=== PATIENT | female | born 1950 | race American Indian/Alaskan Native ===

== ENCOUNTER 2016-10-14 06:50 | Emergency (ER) | payer MEDICARE ==
[2016-10-14 13:32] VITALS: BP 141/91
--- NOTE | 2016-10-14 22:43 | Emergency Department Report ---
Entered by VAUGHN GAGNON, acting as scribe for TABITHA CAM PA. ED Lower Extremity HPI - General Chief Complaint: Extremity Injury, Lower Stated Complaint: LEG CRAMP Time Seen by Provider: 10/14/16 11:23 Source: patient, EMS Mode of arrival: Wheelchair Limitations: Physical Limitation - History of Present Illness Initial Comments: 66 y/o female with a PMHX of CVA, HTN, and MS presents to the ED c/o cramping right leg and calf pain that began this morning. Patient states she was awaken by the pain this morning. Patient states she did not have any symptoms prior to onset of pain. Reports walking a lot on hardwood floors in her home yesterday. Denies chest pain, SOB, dizziness, numbness, and tingling. Patient states the pain is alleviated with walking and aggravated with nothing. Denies Hx of similar symptoms. NKDA. DELUNA Complaint: other (right leg and calf pain) -: This morning Type of Injury: other (no injury) Place: home Severity: mild Improves With: other (walking) Worsens With: nothing Associated Symptoms: denies: swelling, numbness, tingling, unable to bear weight , able to partially bear weight, ambulatory - Related Data Home Medications Medication Instructions Recorded Confirmed Last Taken Carvedilol 12.5 mg PO BID 03/25/15 04/03/15 04/03/15 Coumadin 5 mg PO DAILY 03/25/15 04/03/15 03/30/15 Digoxin 1.25 mg PO DAILY 03/25/15 04/03/15 04/03/15 Lisinopril 2.5 mg PO DAILY 03/25/15 04/03/15 04/03/15 Previous Rx's Medication Instructions Recorded Last Taken Type Cyclobenzaprine [Flexeril] 10 mg PO QHS PRN #20 tablet 10/14/16 Unknown Rx Naproxen [Naprosyn] 500 mg PO BID #30 tablet 10/14/16 Unknown Rx Allergies Allergy/AdvReac Type Severity Reaction Status Date / Time No Known Allergies Allergy Verified 03/25/15 14:24 ED Review of Systems Comment: All other systems reviewed and negative Constitutional: no symptoms reported. denies: chills, fever, weakness Respiratory: no symptoms reported. denies: cough, orthopnea, shortness of breath, SOB with exertion, SOB at rest, stridor, wheezing Cardiovascular: denies: chest pain, palpitations Endocrine: no symptoms reported Gastrointestinal: denies: nausea, vomiting Musculoskeletal: arthralgia (right leg and calf pain). denies: back pain, joint swelling Skin: denies: rash, lesions Neurological: denies: headache, weakness, numbness, paresthesias ED Past Medical Hx - Past Medical History Hx Hypertension: Yes (EF 20%; CHF; takes dig, lisinopril, and coreg) Hx CVA: Yes (residual left side weakness) Hx Congestive Heart Failure: Yes Hx Asthma: No Hx HIV: No - Surgical History Past Surgical History?: No Additional Surgical History: Hysterectomy, Removed blood clot from brain - Social History Smoking Status: Former Smoker Substance Use Type: Prescribed - Medications Home Medications: Home Medications Medication Instructions Recorded Confirmed Last Taken Type Carvedilol 12.5 mg PO BID 03/25/15 04/03/15 04/03/15 History Coumadin 5 mg PO DAILY 03/25/15 04/03/15 03/30/15 History Digoxin 1.25 mg PO DAILY 03/25/15 04/03/15 04/03/15 History Lisinopril 2.5 mg PO DAILY 03/25/15 04/03/15 04/03/15 History Cyclobenzaprine [Flexeril] 10 mg PO QHS PRN #20 tablet 10/14/16 Unknown Rx Naproxen [Naprosyn] 500 mg PO BID #30 tablet 10/14/16 Unknown Rx ED Physical Exam - General Limitations: Physical Limitation General appearance: alert, in no apparent distress - Head Head exam: Present: atraumatic, normocephalic - Eye Eye exam: Present: normal appearance, PERRL, EOMI Pupils: Present: normal accommodation - ENT ENT exam: Present: normal exam, mucous membranes moist - Neck Neck exam: Present: normal inspection, full ROM. Absent: tenderness, lymphadenopathy - Respiratory Respiratory exam: Present: normal lung sounds bilaterally. Absent: respiratory distress, wheezes, rales, rhonchi, stridor - Cardiovascular Cardiovascular Exam: Present: regular rate, normal rhythm, normal heart sounds. Absent: systolic murmur, diastolic murmur, rubs, gallop - GI/Abdominal GI/Abdominal exam: Present: soft, normal bowel sounds. Absent: distended, tenderness, guarding, rebound, rigid - Extremities Exam Extremities exam: Present: full ROM, tenderness (right calf tenderness), normal capillary refill. Absent: pedal edema, joint swelling, calf tenderness - Expanded Lower Extremity Exam Right Hip exam: Present: normal inspection, full ROM Upper Leg exam: Present: normal inspection, full ROM Knee exam: Present: normal inspection, full ROM, full knee extension Lower Leg exam: Present: full ROM, tenderness (right calf tenderness). Absent: swelling, abrasion, laceration, ecchymosis, deformity, crepidus, dislocation, erythema, Emily's sign Ankle exam: Present: normal inspection, full ROM Foot/Toe exam: Present: normal inspection, full ROM Neuro vascular tendon exam: Present: no vascular compromise. Absent: pulse deficit, abnormal cap refill, motor deficit, sensory deficit, tendon deficit, extremity cold to touch, pallor, abnormal 2-point discrimination Gait: Positive: observed and normal - Back Exam Back exam: Present: normal inspection - Neurological Exam Neurological exam: Present: alert, oriented X3, other (generalized left sided weakness due to a previous CVA) - Psychiatric Psychiatric exam: Present: normal affect, normal mood - Skin Skin exam: Present: warm, dry, intact. Absent: rash ED Course Vital Signs 10/14/16 10/14/16 07:15 13:31 Temperature 98 F Pulse Rate 66 64 Respiratory 18 18 Rate Blood Pressure 147/91 Blood Pressure 141/91 [Left] O2 Sat by Pulse 97 98 Oximetry ED Lower Extremity MDM - Radiology Data Radiology results: report reviewed 10/14/16 12:49 - Radiology Dept. Note by KATERIN HOLLINGSWORTH [facility] Num: [id number] : 1950 Patient Age: 66 VASCULAR LAB.PRELIMINARY REPORT.RLE VENOUS DUPLEX DONE.NO EVIDENCE OF DVT/SVT IN VESSELS VISUALIZED. - Medical Decision Making 66-year-old female presents with right leg myalgia ED course: Doppler studies of bilateral left extremity abstained. Negative for DVT see above. Patient is not ill-appearing. Right calf tenderness with no swelling. Negative Emily's sign. Discussed the follow-up with PCP as referred. Discuss her symptoms and she is encouraged to return to ED for any worsening symptoms. Patient states understanding and will follow instructions. Vital signs stable. Patient is in no acute distress. - Differential Diagnosis 1. muscle strain 2. DVT 3. Myalgia ED Disposition Disposition: - TO HOME OR SELFCARE Is pt being admited?: No Does the pt Need Aspirin: No Condition: Stable Instructions: Muscle Strain (ED) Additional Instructions: Follow-up primary care physician. If he developed new signs such as shortness of breath or worsening leg pain and return to ED Continue to take her medications as prescribed to by her primary care. Prescriptions: Cyclobenzaprine [Flexeril] 10 mg PO QHS PRN #20 tablet PRN Reason: Muscle Spasm Naproxen [Naprosyn] 500 mg PO BID #30 tablet Referrals: PRIMARY CARE,MD [Primary Care Provider] - 3-5 Days [facility] [Outside] - 3-5 Days [facility] [Outside] - 3-5 Days Forms: Work/School Release Form(ED) Time of Disposition: 13:09 This documentation as recorded by the KALIN marcelino JASMINE,accurately reflects the service I personally performed and the decisions made by ,TABITHA CAM PA.
--- NOTE | 2016-10-15 14:49 | Vascular Lab Report ---
Right Lower Extremity Venous Duplex Study: Reason for Exam: Pain of the right lower extremity. Comments on the Right: All veins visualized are freely compressible without evidence of internal echogenicity. Flow is spontaneous and phasic throughout. No evidence of acute or chronic thrombus is seen in any of the vessels visualized. Comments on the Left: A limited duplex study was done of the proximal veins of the left lower extremity. All veins visualized are freely compressible without evidence of internal echogenicity. Flow is spontaneous and phasic throughout. No evidence of acute or chronic thrombus is seen in any of the vessels visualized. Impression: No evidence of acute or chronic deep venous thrombosis in the right lower extremity.
== END 2016-10-14 13:30 | disposition home or self-care (01) ==
LOC: ED 06:50
DX: S86.811A Strain of other muscle(s) and tendon(s) at lower leg level, right leg, initial encounter (principal); I10 Essential (primary) hypertension; I50.9 Heart failure, unspecified; X58.XXXA Exposure to other specified factors, initial encounter; Y93.01 Activity, walking, marching and hiking; Y99.8 Other external cause status; Y92.89 Other specified places as the place of occurrence of the external cause; Z86.73 Personal history of transient ischemic attack (TIA), and cerebral infarction without residual deficits; Z87.891 Personal history of nicotine dependence

== ENCOUNTER 2017-04-07 09:01 | Inpatient (IN) | payer MEDICARE ==
[2017-04-07 10:11] LABS: Basophils % (Auto) 0.7 % (0.0-1.8); Eosinophils % (Auto) 0.8 % (0.0-4.3); Hematocrit 40.6 % (30.3-42.9); Hemoglobin 13.5 gm/dl (10.1-14.3); Mean Corpuscular HGB Conc 33 % (30-34); Mean Corpuscular Hemoglobin 33 pg (28-32); Mean Corpuscular Volume 98 fl (79-97); Platelet Count 167 K/mm3 (140-440); Red Blood Count 4.13 M/mm3 (3.65-5.03); Red Cell Distribution Width 14.9 % (13.2-15.2); White Blood Count 8.8 K/mm3 (4.5-11.0)
[2017-04-07 10:25] LABS: Anion Gap 20 mmol/L; BUN/Creatinine Ratio 21; Blood Urea Nitrogen 15 mg/dL (7-17); Calcium 8.9 mg/dL (8.4-10.2); Carbon Dioxide 20 mmol/L (22-30); Chloride 109.8 mmol/L (98-107); Glucose 118 mg/dL (65-100); Potassium 3.6 mmol/L (3.6-5.0); Sodium 146 mmol/L (137-145)
[2017-04-07 10:36] LABS: INR 1.39 (0.87-1.13)
[2017-04-07 10:37] LABS: Partial Thromboplastin Time 28.7 Sec. (24.2-36.6)
--- NOTE | 2017-04-07 15:16 | XRay Report ---
PORTABLE CHEST INDICATION: Shortness of breath. COMPARISON: 11/20/2012 FINDINGS: Portable, frontal chest radiograph again demonstrates mild to moderate cardiomegaly. Clear lungs. Right hemidiaphragm slightly elevated. No pleural effusions or CHF. Mid to lower thoracic spine degenerative spurring. CONCLUSION: No acute chest process with cardiomegaly again noted, as above. Thank you for the opportunity to participate in this patient's care.
[2017-04-07] MEDS ORDERED: DUONEB *Not for PRN Use IH ONE (21:34)
[2017-04-07] MEDS ORDERED: LASIX IV ONE (21:34)
--- NOTE | 2017-04-07 21:39 | Emergency Department Report ---
ED Shortness of Breath HPI - General Chief Complaint: Dyspnea/Respdistress Stated Complaint: MARY Time Seen by Provider: 04/07/17 20:27 Source: patient Mode of arrival: Wheelchair Limitations: No Limitations - History of Present Illness Initial Comments: 67 yo female who comes in today due to shortness of breath. She states that it started about one day ago. She has a hx of atrial fibrillation and congestive heart failure, for which she takes medications. She also admits to a hx of cva with a left sided deficit. MD Complaint: shortness of breath -: days(s) (one ) Severity: moderate Improves With: oxygen, rest, bronchodilators, medication (lasix) Worsens With: exertion Known History Of: congestive heart failure, other (atrial fibrillation ) Associated Symptoms: chest pain Treatments Prior to Arrival: none - Related Data Home Oxygen Therapy: No Home Medications Medication Instructions Recorded Confirmed Last Taken Carvedilol 12.5 mg PO BID 03/25/15 04/03/15 04/03/15 Coumadin 5 mg PO DAILY 03/25/15 04/03/15 03/30/15 Digoxin 1.25 mg PO DAILY 03/25/15 04/03/15 04/03/15 Lisinopril 2.5 mg PO DAILY 03/25/15 04/03/15 04/03/15 Previous Rx's Medication Instructions Recorded Last Taken Type Cyclobenzaprine [Flexeril] 10 mg PO QHS PRN #20 tablet 10/14/16 Unknown Rx Naproxen [Naprosyn] 500 mg PO BID #30 tablet 10/14/16 Unknown Rx Allergies Allergy/AdvReac Type Severity Reaction Status Date / Time No Known Allergies Allergy Verified 04/07/17 09:36 ED Review of Systems ROS: Stated complaint: MARY Other details as noted in HPI Constitutional: denies: chills, fever Eyes: denies: eye pain, eye discharge, vision change Respiratory: see HPI, shortness of breath Cardiovascular: chest pain Endocrine: no symptoms reported Gastrointestinal: denies: abdominal pain, nausea, diarrhea Genitourinary: denies: urgency, dysuria, discharge Musculoskeletal: denies: back pain, joint swelling, arthralgia Skin: denies: rash, lesions Neurological: denies: headache, weakness, paresthesias Psychiatric: denies: anxiety, depression Hematological/Lymphatic: other (edema-bilateral lower extremities) ED Past Medical Hx - Past Medical History Previous Medical History?: Yes Hx Hypertension: Yes (EF 20%; CHF; takes dig, lisinopril, and coreg) Hx CVA: Yes (residual left side weakness) Hx Congestive Heart Failure: Yes Hx Asthma: No Hx HIV: No - Surgical History Additional Surgical History: Hysterectomy, Removed blood clot from brain - Social History Smoking Status: Never Smoker Substance Use Type: None - Medications Home Medications: Home Medications Medication Instructions Recorded Confirmed Last Taken Type Carvedilol 12.5 mg PO BID 03/25/15 04/03/15 04/03/15 History Coumadin 5 mg PO DAILY 03/25/15 04/03/15 03/30/15 History Digoxin 1.25 mg PO DAILY 03/25/15 04/03/15 04/03/15 History Lisinopril 2.5 mg PO DAILY 03/25/15 04/03/15 04/03/15 History Cyclobenzaprine [Flexeril] 10 mg PO QHS PRN #20 tablet 10/14/16 Unknown Rx Naproxen [Naprosyn] 500 mg PO BID #30 tablet 10/14/16 Unknown Rx ED Physical Exam - General Limitations: No Limitations General appearance: alert, in no apparent distress - Head Head exam: Present: atraumatic, normocephalic - Eye Eye exam: Present: normal appearance - ENT ENT exam: Present: mucous membranes moist - Neck Neck exam: Present: normal inspection - Respiratory Respiratory exam: Present: wheezes (minimal diffusely), other (crackles- bilateral lower lung corea) - Cardiovascular Cardiovascular Exam: Present: regular rate, normal rhythm. Absent: systolic murmur, diastolic murmur, rubs, gallop - GI/Abdominal GI/Abdominal exam: Present: soft, normal bowel sounds - Extremities Exam Extremities exam: Present: pedal edema (bilaterally ) - Back Exam Back exam: Present: normal inspection - Neurological Exam Neurological exam: Present: alert, oriented X3 - Psychiatric Psychiatric exam: Present: normal affect, normal mood - Skin Skin exam: Present: warm, dry, intact, normal color. Absent: rash ED Course Vital Signs 04/07/17 04/07/17 04/07/17 09:37 16:40 18:42 Temperature 97.5 F L 97.8 F Pulse Rate 75 79 81 Pulse Rate [ Anterior Bilateral Throughout] Respiratory 22 22 21 Rate Respiratory Rate [Anterior Bilateral Throughout] Blood Pressure 140/86 179/100 Blood Pressure [Right] O2 Sat by Pulse 98 98 95 Oximetry 04/07/17 04/07/17 04/07/17 18:50 18:51 19:00 Temperature 98.1 F Pulse Rate 102 H 83 81 Pulse Rate [ Anterior Bilateral Throughout] Respiratory 34 H 18 20 Rate Respiratory Rate [Anterior Bilateral Throughout] Blood Pressure 173/90 173/90 Blood Pressure 173/90 [Right] O2 Sat by Pulse 96 97 94 Oximetry 04/07/17 04/07/17 04/07/17 19:10 19:20 19:30 Temperature Pulse Rate 72 85 93 H Pulse Rate [ Anterior Bilateral Throughout] Respiratory 20 19 19 Rate Respiratory Rate [Anterior Bilateral Throughout] Blood Pressure 171/89 171/89 171/89 Blood Pressure [Right] O2 Sat by Pulse 97 98 95 Oximetry 04/07/17 04/07/17 04/07/17 19:40 19:50 20:00 Temperature Pulse Rate 105 H 86 77 Pulse Rate [ Anterior Bilateral Throughout] Respiratory 17 33 H 17 Rate Respiratory Rate [Anterior Bilateral Throughout] Blood Pressure 184/93 184/93 177/86 Blood Pressure [Right] O2 Sat by Pulse 96 92 99 Oximetry 04/07/17 04/07/17 04/07/17 20:10 20:20 20:30 Temperature Pulse Rate 100 H 91 H 89 Pulse Rate [ Anterior Bilateral Throughout] Respiratory 24 32 H 32 H Rate Respiratory Rate [Anterior Bilateral Throughout] Blood Pressure 184/73 178/88 178/88 Blood Pressure [Right] O2 Sat by Pulse 98 97 99 Oximetry 04/07/17 04/07/17 04/07/17 20:40 20:50 21:00 Temperature Pulse Rate 79 105 H 127 H Pulse Rate [ Anterior Bilateral Throughout] Respiratory 24 28 H 24 Rate Respiratory Rate [Anterior Bilateral Throughout] Blood Pressure 156/81 175/104 179/97 Blood Pressure [Right] O2 Sat by Pulse 98 97 93 Oximetry 04/07/17 04/07/17 04/07/17 21:11 21:20 21:30 Temperature Pulse Rate 93 H 100 H 84 Pulse Rate [ Anterior Bilateral Throughout] Respiratory 12 20 14 Rate Respiratory Rate [Anterior Bilateral Throughout] Blood Pressure 175/104 180/99 170/98 Blood Pressure [Right] O2 Sat by Pulse 99 99 97 Oximetry 04/07/17 04/07/17 04/07/17 21:40 21:50 21:53 Temperature 97.7 F Pulse Rate 102 H 102 H 94 H Pulse Rate [ Anterior Bilateral Throughout] Respiratory 22 24 28 H Rate Respiratory Rate [Anterior Bilateral Throughout] Blood Pressure 170/98 122/82 Blood Pressure 177/88 [Right] O2 Sat by Pulse 99 98 96 Oximetry 04/07/17 04/07/17 04/07/17 21:56 22:00 22:06 Temperature Pulse Rate 102 H 108 H 123 H Pulse Rate [ Anterior Bilateral Throughout] Respiratory 19 16 28 H Rate Respiratory Rate [Anterior Bilateral Throughout] Blood Pressure 122/82 122/82 122/82 Blood Pressure [Right] O2 Sat by Pulse 98 98 93 Oximetry 04/07/17 04/07/17 04/07/17 22:10 22:12 22:16 Temperature Pulse Rate 112 H 107 H Pulse Rate [ 91 H Anterior Bilateral Throughout] Respiratory 14 26 H Rate Respiratory 12 Rate [Anterior Bilateral Throughout] Blood Pressure 122/82 137/116 Blood Pressure [Right] O2 Sat by Pulse 93 98 Oximetry 04/07/17 04/07/17 04/07/17 22:20 22:21 22:26 Temperature Pulse Rate 106 H 129 H Pulse Rate [ 94 H Anterior Bilateral Throughout] Respiratory 30 H 24 Rate Respiratory 14 Rate [Anterior Bilateral Throughout] Blood Pressure 137/116 133/83 Blood Pressure [Right] O2 Sat by Pulse 98 98 Oximetry 04/07/17 04/07/17 04/07/17 22:30 22:36 22:40 Temperature Pulse Rate 108 H 97 H 178 H Pulse Rate [ Anterior Bilateral Throughout] Respiratory 16 28 H 34 H Rate Respiratory Rate [Anterior Bilateral Throughout] Blood Pressure 133/83 161/103 161/103 Blood Pressure [Right] O2 Sat by Pulse 98 98 98 Oximetry 04/07/17 04/08/17 22:46 00:15 Temperature Pulse Rate 175 H 174 H Pulse Rate [ Anterior Bilateral Throughout] Respiratory 26 H Rate Respiratory Rate [Anterior Bilateral Throughout] Blood Pressure 161/103 170/106 Blood Pressure [Right] O2 Sat by Pulse 93 Oximetry - Reevaluation(s) Reevaluation #1: 04/08/17 00:34 Shortness of breath improved. Atrial fibrillation resolved with cardizem. Plan to admit to the hospital care of the hospitalist. ED Medical Decision Making - Lab Data Result diagrams: 04/07/17 09:54 04/07/17 09:54 Critical care attestation.: If time is entered above; I have spent that time in minutes in the direct care of this critically ill patient, excluding procedure time. ED Disposition Clinical Impression: Atrial fibrillation Disposition: OP ADMIT IP TO THIS HOSP Is pt being admited?: Yes Does the pt Need Aspirin: No Condition: Stable Referrals: PRIMARY CARE, [Primary Care Provider] - 3-5 Days Time of Disposition: 00:40
[2017-04-07] MEDS ORDERED: CARDIZEM IV ONE (22:54)
[2017-04-07] MEDS ORDERED: NACL 0.9% 1000 ML 1,000 ML IV ONE ×2 (22:54→22:59)
[2017-04-08] MEDS ORDERED: COREG PO SCH ×2 (01:00→10:00)
[2017-04-08] MEDS ORDERED: MILK OF MAGNESIA PO PRN (01:24)
[2017-04-08] MEDS ORDERED: MORPHINE IV PRN (01:24)
[2017-04-08] MEDS ORDERED: TYLENOL PO PRN (01:24)
[2017-04-08] MEDS ORDERED: DULCOLAX PR PRN (01:24)
[2017-04-08] MEDS ORDERED: ZOFRAN IV PRN (01:24)
--- NOTE | 2017-04-08 01:24 | History and Physical Report ---
History of Present Illness Date of examination: 04/08/17 Date of admission: 04/08/17 Chief complaint: Shortness of breath History of present illness: Patient is 67-year-old with history of congestive heart failure atrial fibrillation on Coumadin. She presented with shortness of breath and leg swelling for one week. She states she probably ate the wrong food over past . Shortness of breath occurs at rest and is worse on exertion, worse on lying flat. She also has a cough. patient denies any chest pain, nausea and vomiting. CXR in ED showed pulmonary edema indicating acute on chronic CHF. Will admit for further management. Past History Past Medical History: atrial fib, heart failure, stroke, other (glucoma) Past Surgical History: hysterectomy, Other (Brain surgery for stroke) Social history: single, full code. denies: smoking, alcohol abuse Family history: CAD, hypertension Medications and Allergies Allergies Allergy/AdvReac Type Severity Reaction Status Date / Time No Known Allergies Allergy Verified 04/07/17 09:36 Home Medications Medication Instructions Recorded Confirmed Last Taken Type Carvedilol [Coreg] 12.5 mg PO DAILY 03/25/15 04/08/17 1 Day Ago History ~04/07/17 Digoxin [Lanoxin] 0.125 mg PO DAILY 03/25/15 04/08/17 1 Day Ago History ~04/07/17 Lisinopril [Zestril TAB] 2.5 mg PO QDAY 03/25/15 04/08/17 1 Day Ago History ~04/07/17 Warfarin Sodium [Coumadin] 5 mg PO DAILY 03/25/15 04/08/17 1 Day Ago History ~04/07/17 Cyclobenzaprine [Flexeril] 10 mg PO QHS PRN #20 tablet 10/14/16 04/08/17 1 Week Ago Rx ~04/01/17 Naproxen [Naprosyn] 500 mg PO BID #30 tablet 10/14/16 04/08/17 3 Weeks Ago Rx ~03/18/17 Active Meds: Active Medications Carvedilol (Coreg) 12.5 mg PO BID SANGEETHA Review of Systems All systems: negative (no headache, no fever, no abdominal pain, no urinary symptoms.All other systems reviewed and are negative) Exam - Physical Exam Narrative exam: GEN APPEARANCE : Not in acute distress, lying in bed HEENT: Normocephalic, Atraumatic NECK : supple, no JVD LUNGS: bilateral basal crackles no wheeze HEART: S1 and S2 regular, no murmurs, rubs or gallop, ABD: Soft, non tender, non distended, normal bowel sounds EXT: No edema, no clubbing, no cyanosis NEURO: Awake,alert, oriented x 3, mild residual left hemiplegia 4/5 power on left upper and lower ext Psych:Normal mood - Constitutional Vitals: Temp Pulse Resp BP Pulse Ox 97.7 F 174 H 26 H 170/106 93 04/07/17 21:53 04/08/17 00:15 04/07/17 22:46 04/08/17 00:15 04/07/17 22:46 Results - Labs CBC & Chem 7: 04/08/17 05:17 04/08/17 05:17 Labs: Abnormal lab results 04/07/17 04/07/17 04/07/17 Range/Units 09:54 09:54 09:54 MCV 98 H (79-97) fl MCH 33 H (28-32) pg [place] % (Auto) 8.3 H (0.0-7.3) % Seg Neutrophils % 71.3 H (40.0-70.0) % PT 17.8 H (12.2-14.9) Sec. INR 1.39 H (0.87-1.13) Sodium 146 H (137-145) mmol/L Chloride 109.8 H (98-107) mmol/L Carbon Dioxide 20 L (22-30) mmol/L Glucose 118 H (65-100) mg/dL NT-Pro-B Natriuret Pep (0-900) pg/mL 04/07/17 Range/Units 13:31 MCV (79-97) fl MCH (28-32) pg [place] % (Auto) (0.0-7.3) % Seg Neutrophils % (40.0-70.0) % PT (12.2-14.9) Sec. INR (0.87-1.13) Sodium (137-145) mmol/L Chloride (98-107) mmol/L Carbon Dioxide (22-30) mmol/L Glucose (65-100) mg/dL NT-Pro-B Natriuret Pep 4023 H (0-900) pg/mL Assessment and Plan Acute on chronic systolic heart failure. Admit to telemetry. Lasix 40 mg iv daily, strict i/O, daily weight. consult Cardiology. Obtain Echo Atrial fibrillation with rapid ventricular response. HR was 140s in the ED. She was given Cardizem 20 mg IV, and HR now down to 89. Patient states did not take Coreg and digoxin yesterday. Will resume. On loading with INR 1.39. We'll give start Lovenox bridge 1 mg/kg twice a day History of stroke with residual mild left-sided weakness Full code status
[2017-04-08] MEDS ORDERED: NITROSTAT SL PRN (01:29)
[2017-04-08] MEDS ORDERED: LANOXIN PO ONE (02:30)
[2017-04-08] MEDS ORDERED: LOVENOX SUB-Q ONE ×2 (03:42)
[2017-04-08] MEDS ORDERED: LANOXIN ONE (03:42)
[2017-04-08] MEDS: LOVENOX SUB-Q SCH ×6 (03:52→22:43)
[2017-04-08 06:06] LABS: Basophils % (Auto) 0.6 % (0.0-1.8); Eosinophils % (Auto) 0.9 % (0.0-4.3); Hematocrit 42.1 % (30.3-42.9); Hemoglobin 13.7 gm/dl (10.1-14.3); Mean Corpuscular HGB Conc 33 % (30-34); Mean Corpuscular Hemoglobin 32 pg (28-32); Mean Corpuscular Volume 98 fl (79-97); Platelet Count 171 K/mm3 (140-440); Red Blood Count 4.29 M/mm3 (3.65-5.03); White Blood Count 12.3 K/mm3 (4.5-11.0)
[2017-04-08 06:21] LABS: Anion Gap 18 mmol/L; BUN/Creatinine Ratio 25; Blood Urea Nitrogen 15 mg/dL (7-17); Calcium 8.7 mg/dL (8.4-10.2); Carbon Dioxide 22 mmol/L (22-30); Chloride 106.5 mmol/L (98-107); Glucose 125 mg/dL (65-100); Potassium 3.5 mmol/L (3.6-5.0); Sodium 143 mmol/L (137-145)
[2017-04-08] MEDS ORDERED: LANOXIN PO SCH (10:00)
[2017-04-08] MEDS ORDERED: LASIX IV SCH (10:00)
[2017-04-08] MEDS ORDERED: NON-FORMULARY (Lisinopril [Zestril Tab] 2.5 MG) PO SCH (10:00)
--- NOTE | 2017-04-08 11:25 | Consultation ---
History of Present Illness Consult date: 04/08/17 Consult reason: congestive heart failure History of present illness: This is a 61yr old woman with multiple medical problems. She has a history of nonischemic cardiomyopathy by cardiac cath 4 years ago that reports no significant coronary disease but an ejection fraction 20-25%. Most recent echcoardiogram showed an improved ejection fraction of 40-45%. She has chronic atrial fibrillation and is on warfarin for oral anticoagulation. 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 Co-morbidities includes Hypertension and left hemiparesis post ICH and cerebral aneurysm repair in 1999. She is now admitted with CHF exacerbation. Patient reports 1 day history of shortness of breath. She denies chest pain. A chest x-ray reports no evidence of congestive heart failure. Sub-therapeutic INR of 1.39 on presentation. Today, patient demonstrated a marked bradycardia with rate in the low 30s during sleep. Cardiology consultation was requested. Patient denies history of sleep apnea. Past History Past Medical History: atrial fib, heart failure, stroke, other (glucoma) Past Surgical History: hysterectomy, Other (Brain surgery for stroke) Social history: single, full code. denies: smoking, alcohol abuse Family history: CAD, hypertension Medications and Allergies Allergies Allergy/AdvReac Type Severity Reaction Status Date / Time No Known Allergies Allergy Verified 04/07/17 09:36 Home Medications Medication Instructions Recorded Confirmed Last Taken Type Carvedilol [Coreg] 12.5 mg PO DAILY 03/25/15 04/08/17 1 Day Ago History ~04/07/17 Digoxin [Lanoxin] 0.125 mg PO DAILY 03/25/15 04/08/17 1 Day Ago History ~04/07/17 Lisinopril [Zestril TAB] 2.5 mg PO QDAY 03/25/15 04/08/17 1 Day Ago History ~04/07/17 Warfarin Sodium [Coumadin] 5 mg PO DAILY 03/25/15 04/08/17 1 Day Ago History ~04/07/17 Cyclobenzaprine [Flexeril] 10 mg PO QHS PRN #20 tablet 10/14/16 04/08/17 1 Week Ago Rx ~04/01/17 Naproxen [Naprosyn] 500 mg PO BID #30 tablet 06/15/17 12/08/17 3 Weeks Ago Rx ~03/18/17 Active Meds: Active Medications Acetaminophen (Tylenol) 650 mg PO Q4H PRN PRN Reason: Pain MILD(1-3)/Fever >100.5/STEVE Bisacodyl (Dulcolax) 10 mg [place] QDAY PRN PRN Reason: Constipation unrelieved by MOM Carvedilol (Coreg) 12.5 mg PO DAILY [facility] Cyclobenzaprine HCl (Flexeril) 10 mg PO QHS PRN PRN Reason: Muscle Spasm Digoxin (Lanoxin) 0.125 mg PO DAILY [facility] Enoxaparin Sodium (Lovenox) 30 mg 1 mg/kg (110 mg) SUB-Q Q12HR [facility] Last Admin: 04/08/17 03:52 Dose: 30 mg Enoxaparin Sodium (Lovenox) 80 mg SUB-Q Q12HR [facility] Last Admin: 04/08/17 03:52 Dose: 80 mg Furosemide (Lasix) 40 mg IV QDAY [facility] Lisinopril (Zestril) 2.5 mg PO QDAY [facility] Magnesium Hydroxide (Milk Of Magnesia) 30 ml PO Q4H PRN PRN Reason: Constipation Morphine Sulfate (Morphine) 2 mg IV Q4H PRN PRN Reason: Pain, Moderate (4-6) Nitroglycerin (Nitrostat) 0.4 mg SL .Q5MIN PRN PRN Reason: Chest Pain Ondansetron HCl (Zofran) 4 mg IV Q6H PRN PRN Reason: nausea or vomiting Warfarin Sodium (Coumadin) 5 mg PO DAILY [facility] PRN Reason: Protocol Physical Examination Vital Signs Temp Pulse Resp BP Pulse Ox 97.5 F L 75 22 140/86 98 04/07/17 09:37 04/07/17 09:37 04/07/17 09:37 04/07/17 09:37 04/07/17 09:37 Results 04/08/17 05:17 04/08/17 05:17 CBC 04/08/17 Range/Units 05:17 WBC 12.3 H (4.5-11.0) K/mm3 RBC 4.29 (3.65-5.03) M/mm3 Hgb 13.7 (10.1-14.3) gm/dl Hct 42.1 (30.3-42.9) % Plt Count 171 (140-440) K/mm3 Lymph # 1.7 (1.2-5.4) K/mm3 [place] # 1.0 H (0.0-0.8) K/mm3 Eos # 0.1 (0.0-0.4) K/mm3 Baso # 0.1 (0.0-0.1) K/mm3 Comprehensive Metabolic Panel 04/08/17 Range/Units 05:17 Sodium 143 (137-145) mmol/L Potassium 3.5 L (3.6-5.0) mmol/L Chloride 106.5 (98-107) mmol/L Carbon Dioxide 22 (22-30) mmol/L BUN 15 (7-17) mg/dL Creatinine 0.6 L (0.7-1.2) mg/dL Glucose 125 H (65-100) mg/dL Calcium 8.7 (8.4-10.2) mg/dL Assessment and Plan Shortness of breath Chronic Afib on warfarin Nonischemic CMP EF 40-45% on echo 01/2016 Hx of left hemiparesis post ICH and Cerebral Aneurysm repair 1999 Hypertension Rheumatic Mitral valve disease
[2017-04-08] MEDS: ZESTRIL PO SCH (12:28)
[2017-04-08] MEDS: LASIX IV SCH (12:45)
[2017-04-08] MEDS: COUMADIN PO SCH (20:43)
[2017-04-08] MEDS ORDERED: FLEXERIL PO PRN (22:00)
[2017-04-09 06:00] LABS: INR 1.45 (0.87-1.13)
[2017-04-09] MEDS: COUMADIN PO SCH (10:23)
[2017-04-09] MEDS: LASIX IV SCH (10:23)
[2017-04-09] MEDS: LOVENOX SUB-Q SCH ×4 (10:24→22:46)
[2017-04-09] MEDS: ZESTRIL PO SCH (10:25)
--- NOTE | 2017-04-09 12:02 | Progress Note ---
Assessment and Plan Shortness of breath Chronic Afib on warfarin Nonsignificant pauses and nocturnal slow conduction noted on telemetry Nonischemic CMP EF 40-45% on echo 01/2016 Hx of left hemiparesis post ICH and Cerebral Aneurysm repair 1999 Hypertension Rheumatic Mitral valve disease with significant Mitral Stenosis Recommend: Continue current therapy including diuresis Outpatient evaluation for Mitral Stenosis Subjective Date of service: 04/09/17 Interval history: No cardiac complaints. Dyspnea is improving. Objective Vital Signs Temp Pulse Resp BP Pulse Ox 04/09/17 06:17 98.4 F 65 18 157/70 97 04/09/17 00:17 98.8 F 70 20 167/80 94 04/08/17 19:58 99 04/08/17 19:48 98.4 F 69 20 149/73 100 04/08/17 14:19 97.6 F 64 20 163/70 96 04/08/17 12:28 72 149/69 - Physical Examination General: Appears Well Neck: Positive: neck supple Cardiac: Positive: Reg Rate and Rhythm, Systolic Murmur, Diastolic Murmur Lungs: Positive: clear to auscultation Neuro: Positive: Grossly Intact Abdomen: Positive: Soft, Active Bowel Sounds Extremities: Absent: edema - Labs and Meds Coagulation 04/09/17 Range/Units 05:18 PT 18.4 H (12.2-14.9) Sec. INR 1.45 H (0.87-1.13)
--- NOTE | 2017-04-09 20:02 | Progress Note ---
Assessment and Plan Assessment and plan: --Acute on chronic systolic congestive heart failure; Ejection fraction 40-45%, continue anti-failure medications, cardiology following --Nonischemic cardiomyopathy; continue current management --Chronic A. fib; rate controlled; continue current beta blockers --Chronic anticoagulation on Coumadin; target INR 2-3 --History of hemorrhagic CVA with left hemiparesis --Hypertension; moderate control, continue current antihypertensives and when necessary medications --Rheumatic heart disease/mitral stenosis; cardiology following Outpatient evaluation of illness --DVT prophylaxis patient is on Coumadin Cardiology evaluation and recommendation noted History Interval history: Patient seen and evaluated medical records reviewed Patient feels better denies chest pain or shortness of breath Hospitalist Physical - Constitutional Vitals: Temp Pulse Resp BP Pulse Ox 98.5 F 64 18 148/71 100 04/09/17 11:50 04/09/17 17:33 04/09/17 11:50 04/09/17 17:33 04/09/17 18:22 General appearance: Present: no acute distress, well-nourished - EENT Eyes: Present: PERRL, EOM intact - Neck Neck: Present: supple, normal ROM - Respiratory Respiratory effort: normal Respiratory: bilateral: diminished, negative: rales, rhonchi, wheezing - Cardiovascular Rhythm: regular Heart Sounds: Present: S1 & S2 - Extremities Extremities: no ischemia, No edema - Abdominal General gastrointestinal: soft, non-tender, non-distended, normal bowel sounds - Integumentary Integumentary: Present: clear, warm - Psychiatric Psychiatric: appropriate mood/affect, cooperative - Neurologic Neurologic: CNII-XII intact, moves all extremities Results - Labs CBC & Chem 7: 04/08/17 05:17 12 05:17 Labs: Laboratory Last Values WBC 12.3 K/mm3 (4.5-11.0) H 04/08/17 05:17 RBC 4.29 M/mm3 (3.65-5.03) 04/08/17 05:17 Hgb 13.7 gm/dl (10.1-14.3) 04/08/17 05:17 Hct 42.1 % (30.3-42.9) 04/08/17 05:17 MCV 98 fl (79-97) H 04/08/17 05:17 MCH 32 pg (28-32) 04/08/17 05:17 MCHC 33 % (30-34) 04/08/17 05:17 RDW 15.0 % (13.2-15.2) 04/08/17 05:17 Plt Count 171 K/mm3 (140-440) 04/08/17 05:17 Lymph % (Auto) 14.2 % (13.4-35.0) 04/08/17 05:17 [place] % (Auto) 8.4 % (0.0-7.3) H 04/08/17 05:17 Eos % (Auto) 0.9 % (0.0-4.3) 04/08/17 05:17 Baso % (Auto) 0.6 % (0.0-1.8) 04/08/17 05:17 Lymph # 1.7 K/mm3 (1.2-5.4) 04/08/17 05:17 [place] # 1.0 K/mm3 (0.0-0.8) H 04/08/17 05:17 Eos # 0.1 K/mm3 (0.0-0.4) 04/08/17 05:17 Baso # 0.1 K/mm3 (0.0-0.1) 04/08/17 05:17 Seg Neutrophils % 75.9 % (40.0-70.0) H 04/08/17 05:17 Seg Neutrophils # 9.3 K/mm3 (1.8-7.7) H 04/08/17 05:17 PT 18.4 Sec. (12.2-14.9) H 04/09/17 05:18 INR 1.45 (0.87-1.13) H 04/09/17 05:18 APTT 28.7 Sec. (24.2-36.6) 04/07/17 09:54 Sodium 143 mmol/L (137-145) 04/08/17 05:17 Potassium 3.5 mmol/L (3.6-5.0) L 04/08/17 05:17 Chloride 106.5 mmol/L (98-107) 04/08/17 05:17 Carbon Dioxide 22 mmol/L (22-30) 04/08/17 05:17 Anion Gap 18 mmol/L 04/08/17 05:17 BUN 15 mg/dL (7-17) 04/08/17 05:17 Creatinine 0.6 mg/dL (0.7-1.2) L 04/08/17 05:17 Estimated GFR > 60 ml/min 04/08/17 05:17 BUN/Creatinine Ratio 25 % 04/08/17 05:17 Glucose 125 mg/dL (65-100) H 04/08/17 05:17 POC Glucose 91 (70-105) 04/07/17 19:58 Calcium 8.7 mg/dL (8.4-10.2) 04/08/17 05:17 Magnesium 2.00 mg/dL (1.7-2.3) 04/07/17 23:04 Troponin T < 0.010 ng/mL (0.00-0.029) 04/07/17 13:31 NT-Pro-B Natriuret Pep 4023 pg/mL (0-900) H 04/07/17 13:31 Digoxin 0.3 ng/mL (0.9-2.0) L 04/08/17 01:24
[2017-04-10 06:39] LABS: Basophils % (Auto) 0.7 % (0.0-1.8); Eosinophils % (Auto) 1.8 % (0.0-4.3); Hematocrit 42.7 % (30.3-42.9); Hemoglobin 14.2 gm/dl (10.1-14.3); Mean Corpuscular HGB Conc 33 % (30-34); Mean Corpuscular Hemoglobin 32 pg (28-32); Mean Corpuscular Volume 97 fl (79-97); Platelet Count 192 K/mm3 (140-440); Red Blood Count 4.41 M/mm3 (3.65-5.03); Red Cell Distribution Width 14.5 % (13.2-15.2); White Blood Count 9.5 K/mm3 (4.5-11.0)
[2017-04-10 06:49] LABS: INR 1.24 (0.87-1.13)
[2017-04-10 06:57] LABS: Anion Gap 16 mmol/L; BUN/Creatinine Ratio 22; Blood Urea Nitrogen 11 mg/dL (7-17); Calcium 8.6 mg/dL (8.4-10.2); Carbon Dioxide 28 mmol/L (22-30); Chloride 100.6 mmol/L (98-107); Glucose 95 mg/dL (65-100); Potassium 3.2 mmol/L (3.6-5.0); Sodium 141 mmol/L (137-145)
[2017-04-10] MEDS: LOVENOX SUB-Q SCH ×4 (09:27→22:57)
[2017-04-10] MEDS: LASIX IV SCH (09:28)
[2017-04-10] MEDS: ZESTRIL PO SCH (09:29)
--- NOTE | 2017-04-10 12:03 | Progress Note ---
Assessment and Plan Shortness of breath Chronic Afib on warfarin Nonsignificant pauses and nocturnal slow conduction noted on telemetry Nonischemic CMP EF 40-45% on echo 01/2016 Hx of left hemiparesis post ICH and Cerebral Aneurysm repair 1999 Hypertension Rheumatic Mitral valve disease with significant Mitral Stenosis Recommend: Continue current therapy including diuresis Outpatient evaluation for Mitral Stenosis Subjective Date of service: 04/10/17 Interval history: Dyspnea is improving Objective Vital Signs Temp Pulse Resp BP Pulse Ox 04/10/17 09:37 100 04/10/17 09:29 145/60 04/10/17 07:50 98.3 F 66 18 167/88 97 04/10/17 04:59 97.7 F 83 18 161/73 97 04/09/17 23:40 98.2 F 91 H 20 130/82 96 04/09/17 20:36 98.6 F 79 20 132/75 93 04/09/17 18:22 100 04/09/17 17:33 64 148/71 98 - Physical Examination General: Appears Well Neck: Positive: neck supple Cardiac: Positive: Reg Rate and Rhythm, Systolic Murmur Lungs: Positive: clear to auscultation Neuro: Positive: Grossly Intact Abdomen: Positive: Soft, Active Bowel Sounds Extremities: Absent: edema - Labs and Meds Coagulation 04/10/17 Range/Units 06:18 PT 16.3 H (12.2-14.9) Sec. INR 1.24 H (0.87-1.13) CBC 04/10/17 Range/Units 06:18 WBC 9.5 (4.5-11.0) K/mm3 RBC 4.41 (3.65-5.03) M/mm3 Hgb 14.2 (10.1-14.3) gm/dl Hct 42.7 (30.3-42.9) % Plt Count 192 (140-440) K/mm3 Lymph # 1.9 (1.2-5.4) K/mm3 [place] # 1.0 H (0.0-0.8) K/mm3 Eos # 0.2 (0.0-0.4) K/mm3 Baso # 0.1 (0.0-0.1) K/mm3 Comprehensive Metabolic Panel 04/10/17 Range/Units 06:18 Sodium 141 (137-145) mmol/L Potassium 3.2 L (3.6-5.0) mmol/L Chloride 100.6 (98-107) mmol/L Carbon Dioxide 28 (22-30) mmol/L BUN 11 (7-17) mg/dL Creatinine 0.5 L (0.7-1.2) mg/dL Glucose 95 (65-100) mg/dL Calcium 8.6 (8.4-10.2) mg/dL
[2017-04-10] MEDS ORDERED: COUMADIN PO SCH (17:00)
[2017-04-11 07:26] LABS: INR 1.2 (0.87-1.13)
--- NOTE | 2017-04-11 09:12 | Progress Note ---
Assessment and Plan Assessment and plan: --Acute on chronic systolic congestive heart failure; Ejection fraction 40-45%, continue anti-failure medications, cardiology following --Nonischemic cardiomyopathy; continue current management --Chronic A. fib; rate controlled; continue current beta blockers --Chronic anticoagulation on Coumadin; target INR 2-3 --History of hemorrhagic CVA with left hemiparesis --Hypertension; moderate control, continue current antihypertensives and when necessary medications --Rheumatic heart disease/mitral stenosis; cardiology following Outpatient evaluation of illness --DVT prophylaxis patient is on Coumadin Cardiology evaluation and recommendation noted Hospitalist Physical - Constitutional Vitals: Temp Pulse Resp BP Pulse Ox 98.1 F 92 H 20 142/66 99 04/11/17 05:35 04/10/17 20:26 04/11/17 05:35 04/11/17 05:35 04/10/17 20:48 General appearance: Present: no acute distress, well-nourished Results - Labs CBC & Chem 7: 04/10/17 06:18 04/11/17 09:14 Labs: Laboratory Last Values WBC 9.5 K/mm3 (4.5-11.0) 04/10/17 06:18 RBC 4.41 M/mm3 (3.65-5.03) 04/10/17 06:18 Hgb 14.2 gm/dl (10.1-14.3) 04/10/17 06:18 Hct 42.7 % (30.3-42.9) 04/10/17 06:18 MCV 97 fl (79-97) 04/10/17 06:18 MCH 32 pg (28-32) 04/10/17 06:18 MCHC 33 % (30-34) 04/10/17 06:18 RDW 14.5 % (13.2-15.2) 04/10/17 06:18 Plt Count 192 K/mm3 (140-440) 04/10/17 06:18 Lymph % (Auto) 19.9 % (13.4-35.0) 04/10/17 06:18 [place] % (Auto) 10.6 % (0.0-7.3) H 04/10/17 06:18 Eos % (Auto) 1.8 % (0.0-4.3) 04/10/17 06:18 Baso % (Auto) 0.7 % (0.0-1.8) 04/10/17 06:18 Lymph # 1.9 K/mm3 (1.2-5.4) 04/10/17 06:18 [place] # 1.0 K/mm3 (0.0-0.8) H 04/10/17 06:18 Eos # 0.2 K/mm3 (0.0-0.4) 04/10/17 06:18 Baso # 0.1 K/mm3 (0.0-0.1) 04/10/17 06:18 Seg Neutrophils % 67.0 % (40.0-70.0) 04/10/17 06:18 Seg Neutrophils # 6.4 K/mm3 (1.8-7.7) 04/10/17 06:18 PT 15.9 Sec. (12.2-14.9) H 04/11/17 06:44 INR 1.20 (0.87-1.13) H 04/11/17 06:44 APTT 28.7 Sec. (24.2-36.6) 04/07/17 09:54 Sodium 141 mmol/L (137-145) 04/10/17 06:18 Potassium 3.2 mmol/L (3.6-5.0) L 04/10/17 06:18 Chloride 100.6 mmol/L (98-107) 04/10/17 06:18 Carbon Dioxide 28 mmol/L (22-30) 04/10/17 06:18 Anion Gap 16 mmol/L 04/10/17 06:18 BUN 11 mg/dL (7-17) 04/10/17 06:18 Creatinine 0.5 mg/dL (0.7-1.2) L 04/10/17 06:18 Estimated GFR > 60 ml/min 04/10/17 06:18 BUN/Creatinine Ratio 22 % 04/10/17 06:18 Glucose 95 mg/dL (65-100) 04/10/17 06:18 POC Glucose 91 (70-105) 04/07/17 19:58 Calcium 8.6 mg/dL (8.4-10.2) 04/10/17 06:18 Magnesium 2.00 mg/dL (1.7-2.3) 04/07/17 23:04 Troponin T < 0.010 ng/mL (0.00-0.029) 04/07/17 13:31 NT-Pro-B Natriuret Pep 4023 pg/mL (0-900) H 04/07/17 13:31 Digoxin 0.3 ng/mL (0.9-2.0) L 04/08/17 01:24
[2017-04-11 09:39] LABS: Anion Gap 17 mmol/L; BUN/Creatinine Ratio 26; Blood Urea Nitrogen 13 mg/dL (7-17); Calcium 8.8 mg/dL (8.4-10.2); Carbon Dioxide 28 mmol/L (22-30); Chloride 100.3 mmol/L (98-107); Glucose 87 mg/dL (65-100); Potassium 3.7 mmol/L (3.6-5.0); Sodium 142 mmol/L (137-145)
[2017-04-11] MEDS: LASIX IV SCH (11:25)
[2017-04-11] MEDS: LOVENOX SUB-Q SCH ×2 (11:26→11:27)
[2017-04-11] MEDS: ZESTRIL PO SCH (11:27)
--- NOTE | 2017-04-11 11:54 | Progress Note ---
Assessment and Plan Shortness of breath Chronic Afib on warfarin nonsignificant pauses and nocturnal slow conduction noted on telemetry. beta blockers discontinued; no reoccurrence Nonischemic CMP EF 40-45% on echo 01/2016 Hx of left hemiparesis post ICH and Cerebral Aneurysm repair 1999 Hypertension Rheumatic Mitral valve disease on conservative management. Conservative cardiac management. Stable for discharge home today. F/U with [facility] 3-5 days once discharged an INR check. Subjective Date of service: 04/11/17 Interval history: Patient reports coughs and congestion. She denies chest pain. No reported events on telemetry monitoring. Objective Vital Signs Temp Pulse Resp BP BP Pulse Ox 04/11/17 05:35 98.1 F 20 142/66 04/11/17 00:42 98.3 F 20 126/67 04/10/17 20:48 99 04/10/17 20:26 98.4 F 92 H 18 124/73 100 04/10/17 19:50 92 H 04/10/17 15:26 86 139/70 99 04/10/17 13:00 98 F 56 L 18 110/61 97 - Physical Examination General: No Apparent Distress Cardiac: Positive: irregularly irregular Lungs: Positive: Wheezes Neuro: Positive: Grossly Intact Abdomen: Positive: Soft, Active Bowel Sounds Extremities: Absent: edema - Labs and Meds Coagulation 04/11/17 Range/Units 06:44 PT 15.9 H (12.2-14.9) Sec. INR 1.20 H (0.87-1.13) Comprehensive Metabolic Panel 04/11/17 Range/Units 09:14 Sodium 142 (137-145) mmol/L Potassium 3.7 (3.6-5.0) mmol/L Chloride 100.3 (98-107) mmol/L Carbon Dioxide 28 (22-30) mmol/L BUN 13 (7-17) mg/dL Creatinine 0.5 L (0.7-1.2) mg/dL Glucose 87 (65-100) mg/dL Calcium 8.8 (8.4-10.2) mg/dL
--- NOTE | 2017-04-11 14:14 | Query- General ---
Deaashwini Stanley Wing Date:__04/11/17 Calender Operator/CDS:____Ajitit Phone#:___[phone] Exercise your independent professional judgment when responding to this query. Questions asked do not imply a particular answer is desired or expected. We greatly appreciate your clarification on this issue. Clinical Documentation States: 67 year old female was admitted on 04/08/17 The progress note (Dr. Dimas 04/09/17) states " Assessment and plan: --Acute on chronic systolic congestive heart failure; -Hypertension; moderate control, " Clinical Findings Show (include reference to source document): Blood pressure: 184/93 Given the above clinical scenario can you please provide an appropriate diagnosis based on your knowledge of the patient: PHYSICIAN RESPONSE: [ ] Hypertensive urgency [ ] Hypertensive emergency [ ] Hypertensive crisis [ x ] Other (Please specify) accelerated hypertension [ ] Clinically undeterminable Present on Admission: [x ] Yes (Y) [ ] Clinically undeterminable (W) [ ]No(N) Please also document response in your Progress Notes and/or Discharge Summary and indicate if the condition was present on admission. KERRIE
--- NOTE | 2017-04-11 15:40 | Discharge Summary ---
Providers - Providers Date of Admission: 04/08/17 01:24 Date of discharge: 04/11/17 Attending physician: RACHAEL CASTILLO 04/08/17 01:29 Consult to Physician [CONS] Routine Consulting Provider: TEA JERRY Reason For Exam: rapid afib, CHF Place consult to:: [facility] Notified:: y Comment:: can call in morning Primary care physician: PROJECT MANAGER/DESIGN MANAGER Hospitalization Reason for admission: worsening shortness of breath Condition: Stable Pertinent studies: Echocardiogram; ejection fraction 30-35% chest x-ray; no abnormality Hospital course: Patient was admitted with worsening shortness of breath, noted to be in acute on chronic systolic congestive heart failure Admitted to the hospital symptomatically managed, evaluated by cardiology, echocardiogram revealed ejection fraction 30-35% Medications were optimized, today's comfortable in no new complaints INR was subtherapeutic at admission, closely monitored with Coumadin, remained subtherapeutic secondary to noncompliance Counseling done advised to comply with medications, home health nurse was set up to monitor INR, and medications Home Physical therapy. Today she is comfortable no new complaints, vital signs stable, physical examination no new changes Cleared by cardiology for discharge and follow-up with them in the office for further evaluation of mitral valve disease Discharge diagnosis; and management; --Acute on chronic systolic congestive heart failure; Ejection fraction 30-35%, continue anti-failure medications, cardiology validated --Nonischemic cardiomyopathy; continue anti-failure medications --Chronic A. fib; rate controlled; continue current beta blockers --Chronic anticoagulation on Coumadin; subtherapeutic ,target INR 2-3 --History of hemorrhagic CVA with left hemiparesis, home physical therapy upon discharge --Hypertension; well controlled --Rheumatic heart disease/mitral stenosis; cardiology following Outpatient evaluation of mitral valve Home physical therapy, home health nurse to monitor INR upon discharge Disposition: [id number] HOME [facility] Time spent for discharge: 32 min Core Measure Documentation - Palliative Care Palliative Care/ Comfort Measures: Not Applicable - Core Measures Any of the following diagnoses?: heart failure - Heart Failure Discharge Requirements AYDEN/ARB for LVSD if EF <40%: Yes Beta ruma at discharge: Yes Exam - Constitutional Vitals: Temp Pulse Resp BP Pulse Ox 98.1 F 92 H 20 142/66 97 04/11/17 05:35 04/10/17 20:26 04/11/17 05:35 04/11/17 05:35 04/11/17 13:39 General appearance: Present: no acute distress, well-nourished - EENT Eyes: Present: PERRL, EOM intact - Neck Neck: Present: supple, normal ROM - Respiratory Respiratory effort: normal Respiratory: bilateral: diminished, negative: rales, rhonchi, wheezing - Cardiovascular Rhythm: regular Heart Sounds: Present: S1 & S2 - Extremities Extremities: no ischemia, No edema - Abdominal General gastrointestinal: Present: soft, non-tender, non-distended, normal bowel sounds - Integumentary Integumentary: Present: clear, warm - Musculoskeletal Musculoskeletal: strength equal bilaterally, generalized weakness - Psychiatric Psychiatric: appropriate mood/affect, cooperative - Neurologic Neurologic: CNII-XII intact, moves all extremities Plan Activity: advance as tolerated, fall precautions Diet: low salt, other (cardiac diet) Special Instructions: physical therapy Additional Instructions: Recurrent INR checks, target INR 2-3, next INR check on 04/13/2017. If you notices any bleeding, hold Coumadin and contact [facility] Advised low salt diet, comply with medications Follow up with: PRIMARY CAREMD [Primary Care Provider] - 3-5 Days TEA JERRY MD [Staff Physician] - 7 Days Forms: Warfarin Discharge Instruction Prescriptions: Furosemide [Lasix] 20 mg PO QDAY #30 tablet
[2017-04-11] MEDS ORDERED: COUMADIN PO SCH (17:00)
[2017-04-11 20:23] VITALS: BP 134/67
== END 2017-04-11 22:15 | disposition home health service (06) | DRG 292 ==
LOC: ED 09:01 → 4A 04-08 01:24
PROVIDERS: ADMIT Internal Medicine; ATTEND Internal Medicine
DX: I11.0 Hypertensive heart disease with heart failure (principal); I69.954 Hemiplegia and hemiparesis following unspecified cerebrovascular disease affecting left non-dominant side; I50.23 Acute on chronic systolic (congestive) heart failure; I42.9 Cardiomyopathy, unspecified; I05.0 Rheumatic mitral stenosis; H40.9 Unspecified glaucoma; I48.2 Chronic atrial fibrillation; Z79.899 Other long term (current) drug therapy; Z90.710 Acquired absence of both cervix and uterus; Z79.01 Long term (current) use of anticoagulants; Z82.49 Family history of ischemic heart disease and other diseases of the circulatory system; Z83.3 Family history of diabetes mellitus
CPT/HCPCS: 36415; 71010; 80048; 80162; 82962; 83735; 83880; 84484; 85025; 85610; 85730; 93005; 93010; 93306; 94640; 94760; 96361; 96372; 96374; 96375; J1650; J1940; J7030